=== PATIENT | male | born 1980 | race Hispanic/Latino ===

== ENCOUNTER 2017-08-23 22:23 | Inpatient (IN) | payer OTHER ==
[~2017-08-23] VITALS: Ht 162.6 cm; Wt 85.3 kg
[2017-08-23] MEDS ORDERED: [UNRECOGNIZED DRUG - OTHER] (23:08)
[2017-08-24 00:48] LABS: BILIRUBIN,URINE NEGATIVE (NEGATIVE); KETONES,URINE NEGATIVE (NEGATIVE); LEUKOCYTE ESTERASE ,URINE NEGATIVE (NEGATIVE); NITRITE,URINE NEGATIVE (NEGATIVE); PH,URINE 6 (5-9); PROTEIN,URINE 1+ (NEGATIVE); UROBILINOGEN,URINE 1 MG/DL (NORMAL)
[2017-08-24] MEDS ORDERED: fentaNYL INJECTION 100 MCG/2 ML AMP IVP STA ×2 (00:57→03:30)
[2017-08-24] MEDS ORDERED: NS IV 1000 ML 1,000 ML IV ONE (00:57)
[2017-08-24 01:13] LABS: BASOPHILS % (AUTO) 0 % (0-10); EOSINOPHILS # (AUTO) 0.5 10^3/uL (0.0-0.3); EOSINOPHILS % (AUTO) 3 % (0-10); LYMPHOCYTES # (AUTO) 2.7 X 10^3 (1.0-4.0); LYMPHOCYTES % (AUTO) 21 % (12-44); MEAN CORPUSCULAR HEMOGLOBIN 31 PG (25-34); MEAN CORPUSCULAR HGB CONC 36 G/DL (32-36); MEAN CORPUSCULAR VOLUME 88 FL (80-99); MEAN PLATELET VOLUME 10.9 FL (7.4-10.4); MONOCYTES # (AUTO) 1.1 X 10^3 (0.0-1.0); MONOCYTES % (AUTO) 8 % (0-12); NEUTROPHILS # (AUTO) 8.9 X 10^3 (1.8-7.8); NEUTROPHILS % (AUTO) 68 % (42-75); PLATELET COUNT 229 10^3/uL (130-400); RED BLOOD COUNT 5.11 10^6/uL (4.35-5.85); RED CELL DISTRIBUTION WIDTH 13.1 % (10.0-14.5); WHITE BLOOD COUNT 13.1 10^3/uL (4.3-11.0)
[2017-08-24 01:24] LABS: ALANINE AMINOTRANSFERASE 119 U/L (0-55); ALBUMIN 4.5 GM/DL (3.2-4.5); ANION GAP 12 MMOL/L (5-14); ASPARTATE AMINO TRANSFERASE 59 U/L (5-34); BILIRUBIN,TOTAL 2.6 MG/DL (0.1-1.0); BLOOD UREA NITROGEN 12 MG/DL (7-18); BUN/CREATININE RATIO 18; CALCIUM 9.4 MG/DL (8.5-10.1); CARBON DIOXIDE 24 MMOL/L (21-32); CHLORIDE 103 MMOL/L (98-107); CREATININE SERUM 0.66 MG/DL (0.60-1.30); GFR ESTIMATED > 60; GLUCOSE 95 MG/DL (70-105); POTASSIUM 3.3 MMOL/L (3.6-5.0); SODIUM 139 MMOL/L (135-145); TOTAL PROTEIN 7.9 GM/DL (6.4-8.2)
--- NOTE | 2017-08-24 01:40 | ED Abdominal Pain ---
General Chief Complaint: Abdominal/GI Problems Stated Complaint: ABD PAIN Nursing Triage Note: PT TO ED 9 W/ FAMILY, BOTH NON [place]ORE[place] SPEAKING, C/O STOMACH PAIN, COUGH, FEVER ET CHILLS ONSET YESTERDAY. PT REPORTS HE TOOK OTC MED FOR CONGESTION BUT DENIES IMPROVEMENT. Sepsis Screen: No Definite Risk Source of Information: Patient Exam Limitations: Language Barrier History of Present Illness Time Seen By Provider: 00:50 Initial Comments Here with report of left lower quadrant abdominal pain that has been going on since yesterday. Complains of stomach pain as well as fever and chills. Pain is nonradiating. Does have history of diverticular disease with rupture and had surgery for that earlier this year. Patient's medical record for this visit is not matched with previous medical record due to name identification problems on arrival. Patient has known history of the diverticular disease and surgery here. Denies vomiting or diarrhea. Denies chest pain. Information via spanish language lecturer line. Timing/Duration: 1-2 Days Severity/Quality: Moderate, Severe, Aching Location: LLQ Radiation: No Radiation Activities at Onset: None Modifying Factors: Worsens With Movement Associated Symptoms: No Back Pain, Fever/Chills, No Heartburn, No Shortness of Air, No Weakness Allergies and Home Medications Allergies Coded Allergies: No Known Drug Allergies (Unverified , 08/23/17) Home Medications [[place]] , (Reported) Review of Systems Constitutional: see HPI EENTM: No Symptoms Reported Respiratory: No Symptoms Reported, Cough, Denies SOA at Rest Cardiovascular: No Symptoms Reported, Denies Chest Pain Gastrointestinal: See HPI, Abdominal Pain, Denies Diarrhea, Denies Nausea, Denies Vomiting Genitourinary: No Symptoms Reported Musculoskeletal: no symptoms reported Skin: no symptoms reported Psychiatric/Neurological: No Symptoms Reported All Other Systems Reviewed Negative Unless Noted: Yes Past Uxulnjg-Pjpoqb-Euyplu Hx Patient Social History Alcohol Use: Denies Use Recreational Drug Use: No Smoking Status: Never a Smoker Recent Foreign Travel: No Contact w/Someone Who Travel: No Recent Infectious Disease Expo: No Recent Hopitalizations: No Physical Abuse: No Sexual Abuse: No Mistreated: No Fear: No Surgeries History of Surgeries: Yes Surgeries: Abdominal Respiratory History of Respiratory Disorde: No Cardiovascular History of Cardiac Disorders: No Neurological History of Neurological Disord: No Genitourinary History of Genitourinary Disor: No Gastrointestinal History of Gastrointestinal Di: No Musculoskeletal History of Musculoskeletal Dis: No Endocrine History of Endocrine Disorders: No HEENT History of HEENT Disorders: No Cancer History of Cancer: No Psychosocial History of Psychiatric Problem: No Suicide Risk Score: 0 Blood Transfusions History of Blood Disorders: No Reviewed Nursing Assessment Reviewed/Agree w Nursing PMH: Yes Family Medical History Significant Family History: No Pertinent Family Hx Physical Exam Vital Signs VS - Last 72 Hours, by Label 08/23/17 22:52 Temp 100.1 Pulse 81 Resp 20 B/P (MAP) 128/80 Pulse Ox 97 O2 Delivery Room Air Capillary Refill : Less Than 3 Seconds General Appearance: WD/WN, mild distress (abdominal pain) HEENT: PERRL/EOMI, pharynx normal Neck: full range of motion, supple Respiratory: lungs clear, normal breath sounds Cardiovascular: regular rate, rhythm, no murmur Gastrointestinal: soft, No guarding, No rebound, tenderness (left lower quadrant) Extremities: non-tender, normal inspection Back: normal inspection, no CVA tenderness, no vertebral tenderness Neurologic/Psychiatric: alert, oriented x 3 Skin: normal color, warm/dry Progress/Results/Core Measures Results/Orders Lab Results Laboratory Tests Test 08/23/17 23:17 08/24/17 01:00 Range/Units Urine Color YELLOW Urine Clarity CLEAR Urine pH 6 5-9 Urine Specific [place] 1.020 1.016-1.022 Urine Protein 1+ H NEGATIVE Urine Glucose (UA) NEGATIVE NEGATIVE Urine Ketones NEGATIVE NEGATIVE Urine Nitrite NEGATIVE NEGATIVE Urine Bilirubin NEGATIVE NEGATIVE Urine Urobilinogen 1 NORMAL MG/DL Urine Leukocyte Esterase NEGATIVE NEGATIVE Urine RBC (Auto) NEGATIVE NEGATIVE Urine RBC NONE /HPF Urine WBC NONE /HPF Urine Crystals NONE /LPF Urine Bacteria NEGATIVE /HPF Urine Casts NONE /LPF Urine Mucus NEGATIVE /LPF Urine Culture Indicated NO White Blood Count 13.1 H 4.3-11.0 10^3/uL Red Blood Count 5.11 4.35-5.85 10^6/uL Hemoglobin 15.9 13.3-17.7 G/DL Hematocrit 45 40-54 % Mean Corpuscular Volume 88 80-99 FL Mean Corpuscular Hemoglobin 31 25-34 PG Mean Corpuscular Hemoglobin Concent 36 32-36 G/DL Red Cell Distribution Width 13.1 10.0-14.5 % Platelet Count 229 130-400 10^3/uL Mean Platelet Volume 10.9 H 7.4-10.4 FL Neutrophils (%) (Auto) 68 42-75 % Lymphocytes (%) (Auto) 21 12-44 % Monocytes (%) (Auto) 8 0-12 % Eosinophils (%) (Auto) 3 0-10 % Basophils (%) (Auto) 0 0-10 % Neutrophils # (Auto) 8.9 H 1.8-7.8 X 10^3 Lymphocytes # (Auto) 2.7 1.0-4.0 X 10^3 Monocytes # (Auto) 1.1 H 0.0-1.0 X 10^3 Eosinophils # (Auto) 0.5 H 0.0-0.3 10^3/uL Basophils # (Auto) 0.0 0.0-0.1 10^3/uL Sodium Level 139 135-145 MMOL/L Potassium Level 3.3 L 3.6-5.0 MMOL/L Chloride Level 103 98-107 MMOL/L Carbon Dioxide Level 24 21-32 MMOL/L Anion Gap 12 5-14 MMOL/L Blood Urea Nitrogen 12 7-18 MG/DL Creatinine 0.66 0.60-1.30 MG/DL Estimat Glomerular Filtration Rate > 60 BUN/Creatinine Ratio 18 Glucose Level 95 70-105 MG/DL Calcium Level 9.4 8.5-10.1 MG/DL Total Bilirubin 2.6 H 0.1-1.0 MG/DL Aspartate Amino Transf (AST/SGOT) 59 H 5-34 U/L Alanine Aminotransferase (ALT/SGPT) 119 H 0-55 U/L Alkaline Phosphatase 106 40-136 U/L Total Protein 7.9 6.4-8.2 GM/DL Albumin 4.5 3.2-4.5 GM/DL Micro Results Microbiology 08/23/17 Influenza Types A,B Antigen (ARBEN) - Final, Complete My Orders Orders - SARAH FERRO MD Cbc With Automated Diff (08/24/17 00:57) Comprehensive Metabolic Panel (08/24/17 00:57) Saline Lock/Iv-Start (08/24/17 00:57) Ns Iv 1000 Ml (Sodium Chloride 0.9%) (08/24/17 00:57) Fentanyl Injection (Sublimaze Injection (08/24/17 00:57) Ct Abdomen/Pelvis W (08/24/17 01:26) Iohexol Injection (Omnipaque 350 Mg/Ml 1 (08/24/17 02:00) Ns (Ivpb) (Sodium Chloride 0.9% Ivpb Bag (08/24/17 02:00) Fentanyl Injection (Sublimaze Injection (08/24/17 03:30) Ceftriaxone Injection (Rocephin Injectio (08/24/17 03:45) Medications Given in ED Current Medications Medications Dose Ordered Sig/Quyen Route Start Time Stop Time Status Last Admin Dose Admin Iohexol 100 ml ONCE ONCE IV 08/24/17 02:00 08/24/17 02:01 DC 08/24/17 01:57 100 ML Sodium Chloride 100 ml ONCE ONCE IV 08/24/17 02:00 08/24/17 02:01 DC 08/24/17 01:58 80 ML Sodium Chloride 1,000 ml @ 0 mls/hr Q0M ONCE IV 08/24/17 00:57 08/24/17 00:58 DC 08/24/17 01:14 1,000 MLS/HR Vital Signs/I&O Vital Sign - Last 12Hours 08/23/17 22:52 Temp 100.1 Pulse 81 Resp 20 B/P (MAP) 128/80 Pulse Ox 97 O2 Delivery Room Air Blood Pressure Mean: 96 Progress Note : Progress Note Seen and evaluated. IV, labs, UA, normal saline 1 L bolus and fentanyl 75 micrograms IV ordered. Monitor patient. CT abdomen pelvis ordered. This was complete. Patient still with pain. 0325: Case discussed with Dr. Solano, surgeon on-call. He has history with the patient. He will admit the patient for further evaluation and care including IV antibiotic and pain control. Admit , inpatient status. Patient agrees with plan. Rocephin 1 g IV ordered. Repeat fentanyl 75 mcg IV ordered. Diagnostic Imaging Diagonstic Imaging: CT Plain Films/CT/US/NM/MRI: abdomen, pelvis Comments Postoperative changes of distal descending colon sig mental resection and reanastomosis since prior CT. Acute diverticulitis involving the distal descending colon just above the surgical anastomosis. No evidence of gross perforation or abscess formation. Fact containing umbilical hernia. Hepatic steatosis. Departure Communication (Admissions) Time/Spoke to Admitting Phy: 03:25 Impression Impression: Primary Impression: Diverticulitis of intestine Qualified Codes: K57.32 - Diverticulitis of large intestine without perforation or abscess without bleeding Disposition: 09 ADMITTED INPATIENT Condition: Stable Admissions Decision to Admit Reason: Admit from ER (General) Decision to Admit/Date: Aug 24, 2017 Time/Decision to Admit Time: 03:25 Departure-Patient Inst. Referrals: [facility] (PCP/Family) Primary Care Physician SARAH FERRO MD Aug 24, 2017 01:40
[2017-08-24] MEDS ORDERED: NS 100 ML (IVPB) BAG IV ONE (02:00)
[2017-08-24] MEDS ORDERED: IOHEXOL 350 MG/ML 100 ML (OMNIPAQUE 350) VIAL IV ONE (02:00)
[2017-08-24] MEDS ORDERED: cefTRIAXone INJECTION 1,000 MG in NS (IVPB) 50 ML IV ONE (03:45)
[2017-08-24 05:30] VITALS: BP 117/58
[2017-08-24] MEDS ORDERED: NS IV 1000 ML 1,000 ML ONE (05:35)
--- OUTSIDE RECORDS SUMMARY | 2017-08-24 05:38 | XMS REPORT | Continuity of Care Document ---
Author Author [facility] Organization [facility] Address Unknown Phone Unavailable Care Team Providers Care Block Sawyer Name Role Phone NO, LOCAL PHYSICIAN PCP Unavailable Insurance Providers Payer Name Policy Number Subscriber Name Relationship Unknown Betty Suero 20 Self / Same As Patient Advance Directives Directive Response Recorded Date/Time Advance Directives No 06/12/15 7:17pm Resuscitation Status Full Code 06/12/15 7:17pm Chief Complaint and Reason for Visit Chief Complaint Abdominal/GI Problems Reason for Visit [id number] Gastritis Epigastric pain Problems Active Problems Medical Problem Onset Date Status Abnormal liver function test Unknown Acute Epigastric pain Unknown Acute Gastritis Unknown Acute Medications Current Home Medications Medication Dose Units Route Directions Days/Qty Instructions Start Date Famotidine 20 Mg 20 Mg Oral Twice A Day 30 06/12/15 Sucralfate 1 Gm/10 Ml 1 Gm Oral Four Times Daily 1 06/12/15 Past Home Medications Medication Directions Ordered Status Cephalexin Monohydrate (Keflex) 500 Mg Capsule, 1 Each Oral Four Times Daily 02/02/12 Discontinued Social History Social History Problem Response Recorded Date/Time Alcohol Use Denies Use 06/12/2015 7:17pm Recreational Drug Use No 06/12/2015 7:17pm Recent Foreign Travel No 06/12/2015 7:17pm Recent Infectious Disease Exposure No 06/12/2015 7:17pm Hospitalization with Isolation Denies 06/12/2015 7:17pm Smoking Status Never a Smoker 06/12/2015 7:17pm Do you dip or chew tobacco? No 06/12/2015 7:17pm Query Response Start Date Stop Date Smoking Status Never a Smoker Hospital Discharge Instructions No hospital discharge instructions. Plan of Care Discharge Date 06/12/15 9:11pm Disposition 01 HOME, SELF-CARE Condition at Discharge Improved Instructions/Education Provided Gastritis (ED) Diet for Ulcers and Gastritis (GEN) Acute Abdominal Pain (ED) Forms Provided Local Medical Staff Listing Prescriptions See Medication Section Referrals NO,LOCAL PHYSICIAN - Primary Care Physician Additional Instructions/Education All discharge instructions reviewed with patient and/or family. Voiced understanding. Medications as directed. Drink plenty of fluids. No spicy foods, fatty foods, carbonated beverages, caffeinated beverages, alcohol, smoking, secondhand smoke, ibuprofen/Motrin, aspirin, Aleve. Do not eat within 2 hours of lying down. Follow-up with your family practitioner for a recheck and repeat labs in the next 5-7 days, call Saturday morning for appointment time. Return to the emergency department for worsened pain, fever, vomiting, vomiting blood, rectal bleeding, black stools, diarrhea, or any other concerns. Functional Status No functional status results. Allergies, Adverse Reactions, Alerts No known allergies. Immunizations No immunization records. Vital Signs Acute Vital Signs Vital Response Date/Time Temperature (Fahrenheit) 98.0 degrees F (97.6 - 99.5) 06/12/2015 7:17pm Temperature (Calculated Celsius) 36.04195 degrees C (36.4 - 37.5) 06/12/2015 7:17pm Temperature Source Temporal 06/12/2015 7:17pm Pulse Rate (adult) 68 bpm (60 - 90) 06/12/2015 7:17pm Respiratory Rate 16 bpm (12 - 24) 06/12/2015 7:17pm O2 Sat by Pulse Oximetry 99 % (88 - 100) 06/12/2015 7:17pm Blood Pressure 133/90 mm Hg 06/12/2015 7:17pm Blood Pressure Mean 104 mm Hg 06/12/2015 7:17pm Pain Pain Intensity 7 06/12/2015 7:17pm Height (Feet) 5 feet 06/12/2015 7:17pm Height (Inches) 4 inches 06/12/2015 7:17pm Height (Calculated Centimeters) 162.576836 cm 06/12/2015 7:17pm Weight (Pounds) 170 pounds 06/12/2015 7:17pm Weight (Calculated Kilograms) 77.317461 kilograms 06/12/2015 7:17pm Calculated BMI 29.18 06/12/2015 7:17pm Results Laboratory Results Test Name Result Units Flags Reference Collection Date/Time Result Date/ Time Comments White Blood Count 7.3 10^3/uL 4.3-11.0 06/12/2015 8:18pm 06/12/2015 8: 28pm Red Blood Count 5.43 10^6/uL 4.35-5.85 06/12/2015 8:18pm 06/12/2015 8: 28pm Hemoglobin 16.8 G/DL 13.3-17.7 06/12/2015 8:18pm 06/12/2015 8:28pm Hematocrit 48 % 40-54 06/12/2015 8:06/12/2015 8:28pm Mean Corpuscular Volume 88 FL 80-99 06/12/2015 8:pm 06/12/2015 8: 28pm Mean Corpuscular Hemoglobin 31 PG 25-34 06/12/2015 8:06/12/2015 8: 28pm Mean Corpuscular Hemoglobin Concent 35 G/DL 32-36 06/12/2015 8:18pm 8:28pm Red Cell Distribution Width 12.9 % 10.0-14.5 06/12/2015 8:2014 8:28pm Platelet Count 259 10^3/uL 130-400 06/12/2015 8:06/12/2015 8:28pm Mean Platelet Volume 10.7 FL H 7.4-10.4 06/12/2015 8:06/12/2015 8: 28pm Neutrophils (%) (Auto) 57 % 42-75 06/12/2015 8:pm 06/12/2015 8:28pm Lymphocytes (%) (Auto) 23 % 12-44 06/12/2015 8:pm 06/12/2015 8:28pm Monocytes (%) (Auto) 9 % 0-12 06/12/2015 8:18pm 06/12/2015 8:28pm Eosinophils (%) (Auto) 10 % 0-10 06/12/2015 8:06/12/2015 8:28pm Basophils (%) (Auto) 1 % 0-10 06/12/2015 8:18pm 06/12/2015 8:28pm Neutrophils # (Auto) 4.2 X 10^3 1.8-7.8 06/12/2015 8:18pm 06/12/2015 8: 28pm Lymphocytes # (Auto) 1.7 X 10^3 1.0-4.0 06/12/2015 8:18pm 06/12/2015 8: 28pm Monocytes # (Auto) 0.7 X 10^3 0.0-1.0 06/12/2015 8:18pm 06/12/2015 8: 28pm Eosinophils # (Auto) 0.8 10^3/uL H 0.0-0.3 06/12/2015 8:18pm 06/12/2015 8 :28pm Basophils # (Auto) 0.1 10^3/uL 0.0-0.1 06/12/2015 8:18pm 06/12/2015 8: 28pm Sodium Level 139 MMOL/L 135-145 06/12/2015 8:pm 06/12/2015 8:51pm Potassium Level 3.5 MMOL/L L 3.6-5.0 06/12/2015 8:18pm 06/12/2015 8:51pm Chloride Level 103 MMOL/L 98-107 06/12/2015 8:pm 06/12/2015 8:51pm Carbon Dioxide Level 22 MMOL/L 21-32 06/12/2015 8:pm 06/12/2015 8: 51pm Anion Gap 14 MMOL/L 5-14 06/12/2015 8:06/12/2015 8:51pm Blood Urea Nitrogen 15 MG/DL 7-06/12/2015 8:06/12/2015 8:51pm Creatinine 0.71 MG/DL 0.60-1.30 06/12/2015 8:pm 06/12/2015 8:51pm BUN/Creatinine Ratio 21 06/12/2015 8:06/12/2015 8:51pm Estimat Glomerular Filtration Rate > 60 06/12/2015 8:2014 8:51pm GFR INTERPRETIVE DATA UNITS FOR ESTIMATED GFR (eGFR): mL/min/1.73 M2 REFERENCE RANGE FOR ESTIMATED GFR (eGFR) eGFR NORMAL eGFR >60 MODERATELY DECREASED eGFR 30-59 SEVERLY DECREASED eGFR 15-29 KIDNEY FAILURE <15 (OR DIALYSIS) Glucose Level 109 MG/DL H 70-105 06/12/2015 8:18pm 06/12/2015 8:51pm Calcium Level 8.9 MG/DL 8.5-10.1 06/12/2015 8:18pm 06/12/2015 8:51pm Total Bilirubin 0.7 MG/DL 0.1-1.0 06/12/2015 8:18pm 06/12/2015 8:51pm Alkaline Phosphatase 106 U/L 40-136 06/12/2015 8:18pm 06/12/2015 8: 51pm Aspartate Amino Transf (AST/SGOT) 62 U/L H 5-34 06/12/2015 8:18pm 2014 8:51pm Alanine Aminotransferase (ALT/SGPT) 100 U/L H 0-55 06/12/2015 8:18pm 8:51pm Total Protein 7.6 G/DL 6.4-8.2 06/12/2015 8:18pm 06/12/2015 8:51pm Albumin 4.3 G/DL 3.2-4.5 06/12/2015 8:18pm 06/12/2015 8:51pm Lipase 38 U/L 8-78 06/12/2015 8:18pm 06/12/2015 8:51pm Procedures No known history of procedures. Encounters Encounter Location Arrival/Admit Date Discharge/Depart Date Attending Provider Departed Emergency Room [facility] 06/12/15 6:39pm 06/12 9:11pm JOSIE CASTRO Recent Diagnosis
--- OUTSIDE RECORDS SUMMARY | 2017-08-24 05:39 | XMS REPORT | Continuity of Care Document ---
Author Author [facility] Organization [facility] Address Unknown Phone Unavailable Care Team Providers Care Welfare Worker Name Role Phone NO, LOCAL PHYSICIAN PCP Unavailable Insurance Providers Payer Name Policy Number Subscriber Name Relationship Unknown Advance Directives Directive Response Recorded Date/Time Advance Directives No 10/07/16 9:44am Resuscitation Status Full Code 10/07/16 9:44am Chief Complaint and Reason for Visit Chief Complaint Abdominal/GI Problems Reason for Visit Diverticulitis of intestine Problems Active Problems Medical Problem Onset Date Status Abnormal liver function test Unknown Acute Diverticulitis of intestine Unknown Acute Epigastric pain Unknown Acute Gastritis [...] History Problem Response Recorded Date/Time Alcohol Use Regular Use 06/24/2015 3:44pm Recreational Drug Use No 06/12/2015 7:17pm Recent Foreign Travel No 10/07/2016 9:44am Recent Infectious Disease Exposure No 10/07/2016 9:44am Hospitalization with Isolation Denies 10/07/2016 9:44am Smoking Status Never a Smoker 10/07/2016 9:44am Do you dip or chew tobacco? No 06/12/2015 7:17pm Recent Hopitalizations No 10/07/2016 9:44am Hospitalization with Isolation Denies 10/07/2016 9:44am Query Response Start Date Stop Date Smoking Status Never a Smoker Hospital Discharge Instructions No hospital discharge instructions. Plan of Care Discharge Date 10/07/16 11:18am Disposition 01 HOME, SELF-CARE Condition at Discharge Improved Instructions/Education Provided Diverticulitis (DC) Prescriptions See Medication Section Referrals [facility],LOCAL PHYSICIAN - Primary Care Physician Additional Instructions/Education Zofran, Vicodin, Cipro, and Flagyl as prescribed. Close follow-up with [facility] tomorrow. Return if any problems or questions. All discharge instructions reviewed with patient and/or family. Voiced understanding. Functional Status No functional status results. Allergies, Adverse Reactions, Alerts No known allergies. Immunizations No immunization records. Vital Signs Acute Vital Signs Vital Response Date/Time Temperature (Fahrenheit) 98.0 degrees F (97.6 - 99.5) 10/07/2016 9:44am Temperature (Calculated Celsius) 36.62540 degrees C (36.4 - 37.5) 10/07/2016 9:44am Temperature Source Temporal 10/07/2016 9:44am Pulse Rate (adult) 88 bpm (60 - 90) 10/07/2016 9:44am Respiratory Rate 20 bpm (12 - 24) 10/07/2016 9:44am O2 Sat by Pulse Oximetry 97 % (88 - 100) 10/07/2016 9:44am Blood Pressure 128/85 mm Hg 10/07/2016 9:44am Blood Pressure Mean 99 mm Hg 10/07/2016 9:44am Pain Numeric Pain Scale 8 10/07/2016 10:25am Height (Feet) 5 feet 10/07/2016 9:44am Height (Inches) 5 inches 10/07/2016 9:44am Height (Calculated Centimeters) 165.361857 cm 10/07/2016 9:44am Weight (Pounds) 170 pounds 10/07/2016 9:44am Weight (Calculated Grams) 72010.704 gm 10/07/2016 9:44am Weight (Calculated Kilograms) 77.790868 kilograms 10/07/2016 9:44am Calculated BMI 29.18 10/07/2016 9:44am Capillary Refill Capillary Refill Less Than 3 Seconds 10/07/2016 9:44am Results Laboratory Results Test Name Result Units Flags Reference Collection Date/Time Result Date/ Time Comments White Blood Count 13.6 10^3/uL H 4.3-11.0 10/07/2016 10:15am 10/07/2016 10:23am Red Blood Count 5.49 10^6/uL 4.35-5.85 10/07/2016 10:15am 10/07/2016 10 :23am Hemoglobin 17.2 G/DL 13.3-17.7 10/07/2016 10:15am 10/07/2016 10:23am Hematocrit 48 % 40-54 10/07/2016 10:1510/07/2016 10:23am Mean Corpuscular Volume 88 FL 80-99 10/07/2016 10:am 10/07/2016 10: 23am Mean Corpuscular Hemoglobin 31 PG 25-34 10/07/2016 10:15am 10/07/2016 10:23am Mean Corpuscular Hemoglobin Concent 36 G/DL 32-36 10/07/2016 10: 10:23am Red Cell Distribution Width 13.0 % 10.0-14.5 10/07/2016 10:15am 2016 10:23am Platelet Count 244 10^3/uL 130-400 10/07/2016 10:am 10/07/2016 10: 23am Mean Platelet Volume 10.6 FL H 7.4-10.4 10/07/2016 10:15am 10/07/2016 10: 23am Neutrophils (%) (Auto) 74 % 42-75 10/07/2016 10:10/07/2016 10: 23am Lymphocytes (%) (Auto) 12 % 12-44 10/07/2016 10:1510/07/2016 10: 23am Monocytes (%) (Auto) 8 % 0-12 10/07/2016 10:15am 10/07/2016 10:23am Eosinophils (%) (Auto) 5 % 0-10 10/07/2016 10:15am 10/07/2016 10:23am Basophils (%) (Auto) 0 % 0-10 10/07/2016 10:15am 10/07/2016 10:23am Neutrophils # (Auto) 10.1 X 10^3 H 1.8-7.8 10/07/2016 10:15am 10/07/2016 10:23am Lymphocytes # (Auto) 1.6 X 10^3 1.0-4.0 10/07/2016 10:15am 10/07/2016 10:23am Monocytes # (Auto) 1.1 X 10^3 H 0.0-1.0 10/07/2016 10:15am 10/07/2016 10: 23am Eosinophils # (Auto) 0.7 10^3/uL H 0.0-0.3 10/07/2016 10:15am 10/07/2016 10:23am Basophils # (Auto) 0.0 10^3/uL 0.0-0.1 10/07/2016 10:15am 10/07/2016 10 :23am Sodium Level 137 MMOL/L 135-145 10/07/2016 10:15am 10/07/2016 10:44am Potassium Level 3.8 MMOL/L 3.6-5.0 10/07/2016 10:15am 10/07/2016 10: 44am Chloride Level 103 MMOL/L 98-107 10/07/2016 10:15am 10/07/2016 10:44am Carbon Dioxide Level 25 MMOL/L 21-32 10/07/2016 10:15am 10/07/2016 10: 44am Anion Gap 9 MMOL/L 5-14 10/07/2016 10:15am 10/07/2016 10:44am Blood Urea Nitrogen 20 MG/DL H 7-18 10/07/2016 10:15am 10/07/2016 10: 44am Creatinine 0.75 MG/DL 0.60-1.30 10/07/2016 10:15am 10/07/2016 10:44am BUN/Creatinine Ratio 27 10/07/2016 10:15am 10/07/2016 10:44am Estimat Glomerular Filtration Rate > 60 10/07/2016 10:15am 2016 10:44am GFR INTERPRETIVE DATA UNITS FOR ESTIMATED GFR (eGFR): mL/min/1.73 M2 REFERENCE RANGE FOR ESTIMATED GFR (eGFR) eGFR NORMAL eGFR >60 MODERATELY DECREASED eGFR 30-59 SEVERLY DECREASED eGFR 15-29 KIDNEY FAILURE <15 (OR DIALYSIS) Glucose Level 108 MG/DL H 70-105 10/07/2016 10:15am 10/07/2016 10:44am Calcium Level 9.2 MG/DL 8.5-10.1 10/07/2016 10:15am 10/07/2016 10:44am Total Bilirubin 1.7 MG/DL H 0.1-1.0 10/07/2016 10:15am 10/07/2016 10: 44am Alkaline Phosphatase 99 U/L 40-136 10/07/2016 10:15am 10/07/2016 10: 44am Aspartate Amino Transf (AST/SGOT) 30 U/L 5-34 10/07/2016 10:15am 2016 10:44am Alanine Aminotransferase (ALT/SGPT) 74 U/L H 0-55 10/07/2016 10:15am 04/2017 10:44am Total Protein 7.5 G/DL 6.4-8.2 10/07/2016 10:15am 10/07/2016 10:44am Albumin 4.7 G/DL H 3.2-4.5 10/07/2016 10:15am 10/07/2016 10:44am Lipase 26 U/L 8-78 10/07/2016 10:15am 10/07/2016 10:44am Procedures No known history of procedures. Encounters Encounter Location Arrival/Admit Date Discharge/Depart Date Attending Provider Departed Emergency Room [facility] 10/07/16 9:12am 10/07 11:18am JULAI PEDRAZA MD Recent Diagnosis
[2017-08-24] MEDS ORDERED: ONDANSETRON 4 MG/2 ML (SDV) Z0FRAN IV PRN (06:15)
[2017-08-24] MEDS ORDERED: CATHETER FLUSH 10 ML SYR IV PRN (06:15)
[2017-08-24] MEDS: NS IV 1000 ML 1,000 ML IV SCH ×2 (06:36→15:48)
[2017-08-24] MEDS: metroNIDAZOLE 500 MG/100 ML IVPB (PRE-MIX) IV SCH ×3 (06:39→21:18)
[2017-08-24 08:00] VITALS: BP 102/50
--- NOTE | 2017-08-24 08:38 | History & Physical-Surgical ---
History of Present Illness History of Present Illness Reason for visit/HPI Pt is known to me; he initially presented in December with similar symptoms to now and was diagnosed at the time with Chronic Diverticulitis. He continued to have pain that was affecting his quality of life and decided to have elective colon resection in February. He presented early this morning with report of left lower quadrant abdominal pain that has been going on since yesterday. Complains of stomach pain as well as fever and chills. Pain is nonradiating. Patient's medical record for this visit is not matched with previous medical record due to name identification problems on arrival. Patient has known history of the diverticular disease and surgery here. Denies vomiting or diarrhea. Denies chest pain. Information via hourly sign language interpreter line. He points more to left flank and axillary line then LLQ. He states he has basically been fine since surgery; no other episodes of pain like this. Timing/Duration: 1-2 Days Severity/Quality: Moderate, Severe, Aching Location: LLQ Radiation: No Radiation Activities at Onset: None Modifying Factors: Worsens With Movement Associated Symptoms: No Back Pain, Fever/Chills, No Heartburn, No Shortness of Air, No Weakness Date of Admission Aug 24, 2017 at 03:35 Time Seen by Provider: 02:47 I consulted on this patient on 08/24/17 08:33 Attending Physician Parvez Solano DO Admitting Physician Nathan,[facility] Allergies and Home Medications Allergies Coded Allergies: No Known Drug Allergies (Unverified , 08/23/17) Home Medications [[place]] , (Reported) Past [id number] Hx Patient Social History Alcohol Use: Denies Use Recreational Drug Use: No Smoking Status: Never a Smoker Recent Foreign Travel: No Contact w/Someone Who Travel: No Recent Infectious Disease Expo: No Recent Hopitalizations: No Physical Abuse Screen: No Sexual Abuse: No Seasonal Allergies Seasonal Allergies: No Surgeries History of Surgeries: Yes (COLON RESECTION) Surgeries: Abdominal Respiratory History of Respiratory Disorde: No Cardiovascular History of Cardiac Disorders: No Neurological History of Neurological Disord: No Genitourinary History of Genitourinary Disor: No Gastrointestinal History of Gastrointestinal Di: Yes Gastrointestinal Disorders: Diverticulosis Musculoskeletal History of Musculoskeletal Dis: No Endocrine History of Endocrine Disorders: No HEENT History of HEENT Disorders: No Cancer History of Cancer: No Psychosocial History of Psychiatric Problem: No Integumentary History of Skin or Integumenta: No Blood Transfusions History of Blood Disorders: No Reviewed Nursing Assessment Reviewed/Agree w Nursing PMH: Yes Family Medical History Significant Family History: Diabetes (Pt states his mother and father do not have DM) Constitutional: chills, diaphoresis, weakness EENTM: No double vision, No dental problems, No mouth swelling, No epistaxis, No throat swelling Respiratory: No cough, No dyspnea on exertion, No hemoptysis Cardiovascular: No chest pain, No edema, No Hx of Intervention Gastrointestinal: LLQ, No jaundice, No nausea, No vomiting Genitourinary: No dysuria, No frequency, No hematuria Musculoskeletal: No back pain, No gout, No joint pain Skin: No change in color, No change in hair/nails, No dryness Psychiatric/Neurological: Denies Anxiety, Denies Depressed, Denies Tingling, Denies Tremors Other Pt denies any abnormal bleeding or bruising Physical Exam Vital Signs Vital Sign - Last 12Hours 08/23/17 22:52 Temp 100.1 Pulse 81 Resp 20 B/P (MAP) 128/80 Pulse Ox 97 O2 Delivery Room Air Capillary Refill : Less Than 3 Seconds General Appearance: WD/WN, Mild Distress Eyes: Bilateral Eye PERRL, Bilateral Eye EOMI HEENT: Pharynx Normal, Moist Mucous Membranes, No Pale Conjunctivae (L), No Pale Conjunctivae (R) Neck: Full Range of Motion, Normal Inspection, Non Tender, Supple Respiratory: Chest Non Tender, Lungs Clear, Normal Breath Sounds, No Accessory Muscle Use, No Respiratory Distress Cardiovascular: Regular Rate, Rhythm, No Edema, No Murmur Gastrointestinal: No Organomegaly, Soft, Hernia (umbilical and ventral), Tenderness (mild in LLQ and Left flank) Rectal: Deferred Extremity: Normal Capillary Refill, Normal Inspection, Normal Range of Motion, Non Tender, No Calf Tenderness, No Pedal Edema Neurologic/Psychiatric: Alert, Oriented x3, No Motor/Sensory Deficits, Normal 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/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, 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 Norm as Tested Skin: Normal Color, Warm/Dry Lymphatic: No Adenopathy (neck, axilla or groin) Data Review Labs Laboratory Tests 08/23/17 23:17: Urine Color YELLOW, Urine Clarity CLEAR, Urine pH 6, Urine Specific [place] 1.020, Urine Protein 1+H, Urine Glucose (UA) NEGATIVE, Urine Ketones NEGATIVE, Urine Nitrite NEGATIVE, Urine Bilirubin NEGATIVE, Urine Urobilinogen 1, Urine Leukocyte Esterase NEGATIVE, Urine RBC (Auto) NEGATIVE, Urine RBC NONE, Urine WBC NONE, Urine Crystals NONE, Urine Bacteria NEGATIVE, Urine Casts NONE, Urine Mucus NEGATIVE, Urine Culture Indicated NO 08/24/17 01:00: White Blood Count 13.1H, Red Blood Count 5.11, Hemoglobin 15.9, Hematocrit 45, Mean Corpuscular Volume 88, Mean Corpuscular Hemoglobin 31, Mean Corpuscular Hemoglobin Concent 36, Red Cell Distribution Width 13.1, Platelet Count 229, Mean Platelet Volume 10.9H, Neutrophils (%) (Auto) 68, Lymphocytes (%) (Auto) 21 , Monocytes (%) (Auto) 8, Eosinophils (%) (Auto) 3, Basophils (%) (Auto) 0, Neutrophils # (Auto) 8.9H, Lymphocytes # (Auto) 2.7, Monocytes # (Auto) 1.1H, Eosinophils # (Auto) 0.5H, Basophils # (Auto) 0.0, Sodium Level 139, Potassium Level 3.3L, Chloride Level 103, Carbon Dioxide Level 24, Anion Gap 12, Blood Urea Nitrogen 12, Creatinine 0.66, Estimat Glomerular Filtration Rate > 60, BUN/ Creatinine Ratio 18, Glucose Level 95, Calcium Level 9.4, Total Bilirubin 2.6H, Aspartate Amino Transf (AST/SGOT) 59H, Alanine Aminotransferase (ALT/SGPT) 119H , Alkaline Phosphatase 106, Total Protein 7.9, Albumin 4.5 Microbiology 08/23/17 Influenza Types A,B Antigen (ARBEN) - Final, Complete Assessment/Plan Assessment/Plan Assessment/Plan Acute Diverticulitis Pt was admitted, IVF, IV ABX, pain control and will allow minimal clear liquid diet. If pt does not tolerate clears; he will need to be NPO. CT was read by the radiologist as acute diverticulitis; no free air or signs of perforation. Pt's abdomen is soft and only has localized tenderness. Will monitor pt and make sure he is improving; will then increase diet and hopefully send home. Clinical Quality Measures DVT/VTE Risk/Contraindication: Risk Factor Score Per Nursin RFS Level Per Nursing on Admit: 1=Low/No VTE PPX PARVEZ SOLANO DO Aug 24, 2017 08:38
--- NOTE | 2017-08-24 08:38 | Diagnostic Imaging Report ---
PROCEDURE: CT abdomen and pelvis with contrast. TECHNIQUE: Multiple contiguous axial images were obtained through the abdomen and pelvis after administration of intravenous contrast. INDICATION: Diverticulitis. COMPARISON: 03/13/2017. FINDINGS: Since the previous exam, there has been interval sigmoid resection. Proximal to the anastomosis, the descending colon shows some regional diverticuli, bowel wall thickening and pericolonic edema suggestive of recurrent focal diverticulitis. We acknowledge this is much less severe than what was present on the previous exam. There is no free air. There is no ascites, abscess, or other fluid collection. There is no resultant bowel obstruction. There is no appendicitis. The urinary tracts are unobstructed. The gallbladder is negative. There is mild chronic hepatic steatosis. The spleen, adrenals and pancreas are unremarkable. A airam-umbilical fatty hernia is present. No herniated viscus. IMPRESSION: 1. Interval sigmoid resection. Just above the anastomosis, there is some distal descending colonic diverticulitis without findings of resultant obstruction, transmural perforation or abscess. Inflammatory changes are relatively mild today and much less severe than what was found on the previous preoperative study. 2. Increasing prominence of fatty umbilical hernia without herniated viscus. 3. Chronic hepatic steatosis. Dictated by: Dictated on workstation # [id number]
[2017-08-24 12:00] VITALS: BP 107/55
[2017-08-24] MEDS: CATHETER FLUSH 10 ML SYR IV SCH ×2 (14:16→21:18)
[2017-08-24 15:39] VITALS: BP 101/59
[2017-08-24] MEDS: fentaNYL INJECTION 100 MCG/2 ML AMP IV PRN ×2 (15:47→18:40)
[2017-08-24 19:45] VITALS: BP 111/63
[2017-08-24 23:30] VITALS: BP 106/51
[2017-08-25] MEDS: NS IV 1000 ML 1,000 ML IV SCH ×2 (00:48→10:10)
[2017-08-25 04:20] VITALS: BP 107/59
[2017-08-25] MEDS: CATHETER FLUSH 10 ML SYR IV SCH ×2 (04:51→10:10)
[2017-08-25] MEDS ORDERED: cefTRIAXone 1 GM/NS 50 ML IVPB IV SCH ×2 (05:00)
[2017-08-25] MEDS: metroNIDAZOLE 500 MG/100 ML IVPB (PRE-MIX) IV SCH ×2 (05:40→14:21)
[2017-08-25 05:58] LABS: BASOPHILS % (AUTO) 0 % (0-10); EOSINOPHILS # (AUTO) 0.7 10^3/uL (0.0-0.3); EOSINOPHILS % (AUTO) 9 % (0-10); LYMPHOCYTES % (AUTO) 25 % (12-44); MEAN CORPUSCULAR HEMOGLOBIN 31 PG (25-34); MEAN CORPUSCULAR HGB CONC 35 G/DL (32-36); MEAN CORPUSCULAR VOLUME 90 FL (80-99); MEAN PLATELET VOLUME 11.1 FL (7.4-10.4); MONOCYTES # (AUTO) 0.8 X 10^3 (0.0-1.0); MONOCYTES % (AUTO) 9 % (0-12); NEUTROPHILS # (AUTO) 4.6 X 10^3 (1.8-7.8); NEUTROPHILS % (AUTO) 57 % (42-75); PLATELET COUNT 231 10^3/uL (130-400); RED BLOOD COUNT 4.89 10^6/uL (4.35-5.85); RED CELL DISTRIBUTION WIDTH 13.3 % (10.0-14.5); WHITE BLOOD COUNT 8.2 10^3/uL (4.3-11.0)
[2017-08-25 06:18] LABS: ALANINE AMINOTRANSFERASE 92 U/L (0-55); ALBUMIN 3.6 GM/DL (3.2-4.5); ANION GAP 9 MMOL/L (5-14); ASPARTATE AMINO TRANSFERASE 40 U/L (5-34); BILIRUBIN,TOTAL 2.1 MG/DL (0.1-1.0); BLOOD UREA NITROGEN 10 MG/DL (7-18); BUN/CREATININE RATIO 16; CALCIUM 8.6 MG/DL (8.5-10.1); CARBON DIOXIDE 25 MMOL/L (21-32); CHLORIDE 107 MMOL/L (98-107); CREATININE SERUM 0.61 MG/DL (0.60-1.30); GFR ESTIMATED > 60; GLUCOSE 98 MG/DL (70-105); POTASSIUM 3.4 MMOL/L (3.6-5.0); SODIUM 141 MMOL/L (135-145); TOTAL PROTEIN 6.5 GM/DL (6.4-8.2)
[2017-08-25 08:00] VITALS: BP 107/60
[2017-08-25] MEDS: fentaNYL INJECTION 100 MCG/2 ML AMP IV PRN (08:17)
--- NOTE | 2017-08-25 13:02 | Progress Note ---
Subjective Time Seen by Provider: 12:31 Subjective/Events-last exam Pt seen and examined, states his pain is 2 out of 10. Tolerating clears and feels much better. +flatus and had BM Review of Systems General: No Chills, No Night Sweats Pulmonary: No Dyspnea, No Cough Cardiovascular: No: Chest Pain, Palpitations Gastrointestinal: No: Nausea, Vomiting, Abdominal Pain (much improved) Genitourinary: No Dysuria, No Frequency Objective Exam Vital Signs Date Time Temp Pulse Resp B/P (MAP) Pulse Ox O2 Delivery O2 Flow Rate FiO2 08/25/17 09:00 96 Room Air 08/25/17 08:00 97.6 71 20 107/60 96 Room Air 08/25/17 04:20 98.5 62 18 107/59 98 Room Air 08/24/17 23:30 99.4 61 18 106/51 97 Room Air 08/24/17 19:45 98.9 67 18 111/63 97 Room Air 08/24/17 15:39 100.2 79 18 101/59 99 Room Air Capillary Refill : Less Than 3 Seconds General Appearance: No Apparent Distress, WD/WN HEENT: Pharynx Normal, Moist Mucous Membranes, No Pale Conjunctivae (L), No Pale Conjunctivae (R) Respiratory: Chest Non Tender, Lungs Clear, Normal Breath Sounds, No Accessory Muscle Use, No Respiratory Distress Cardiovascular: Regular Rate, Rhythm, No Edema, No Murmur Gastrointestinal: soft, No guarding, No rebound, tenderness (left lower quadrant, improved compared to yesterday) Extremity: Normal Capillary Refill, No Calf Tenderness, No Pedal Edema Neurologic/Psychiatric: Alert, Oriented x3, No Motor/Sensory Deficits, Normal Mood/Affect, 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8, Eosinophils # (Auto) 0.7H, Basophils # (Auto) 0.0, Sodium Level 141, Potassium Level 3.4L, Chloride Level 107, Carbon Dioxide Level 25, Anion Gap 9, Blood Urea Nitrogen 10, Creatinine 0.61, Estimat Glomerular Filtration Rate > 60, BUN/ Creatinine Ratio 16, Glucose Level 98, Calcium Level 8.6, Total Bilirubin 2.1H, Aspartate Amino Transf (AST/SGOT) 40H, Alanine Aminotransferase (ALT/SGPT) 92H, Alkaline Phosphatase 85, Total Protein 6.5, Albumin 3.6 Microbiology 08/23/17 Influenza Types A,B Antigen (ARBEN) - Final, Complete Assessment/Plan Assessment/Plan Assessment/Plan Acute Diverticulitis -resolved. Will increase diet and then send pt home on oral ABX. Pt should change his diet; increased fiber and decreased red meat to try and avoid future attacks of Diverticulitis. Will send home later today. Pt had no questions and will follow up in a week in my office. Clinical Quality Measures DVT/VTE Risk/Contraindication: Risk Factor Score Per Nursin RFS Level Per Nursing on Admit: 1=Low/No VTE PPX JANNET ABERNATHY DO Aug 25, 2017 13:02
[2017-08-25] MEDS ORDERED: CIPR500S2 PO (13:05)
[2017-08-25] MEDS ORDERED: METR500T PO (13:05)
--- NOTE | 2017-08-25 13:07 | Discharge Inst-Surgical ---
Discharge Inst-Surgical Depart Medication/Instructions New, Converted or Re-Newed RX: Call to Patients Pharmacy Patient Instructions Follow up Appt: Make appointment for 1 week. Instructions: May shower in 24 hours, no tub bath or soaking. Use incentive spirometer at home as directed. No Smoking Symptoms to Report: Appetite Changes, Extremity Discoloration, Numbness/Tingling, Swelling Increased , Bleeding Excessive, Eyesight Changes, Pain Increased, Urine Color Change, Constipation(Persistent), Fever over 101 degree F, Pain/Pressure in chest, Urinating Difficulty, Cough Up/Vomit Blood, Heart Beat Irreg/Pounding, Pain/ Pressure in jaw, Vaginal Bleeding Increase, Cramps in feet or legs, Lightheadedness, Pain/Pressure in shoulder, Diarrhea(Persistent), Memory Changes Suddenly, Questions/Concerns, Weight gain consecutive days, Dizziness/ Fainting, Nausea/Vomiting, Shortness of Breath, Weight gain over 2 pounds If questions or concerns contact your physician Or seek help at emergency department. Activity Driving Instructions: You May Drive Diet Discharge Diet: Low Residue If Any Problems/Questions/Issu: Contact Your Physician, Go to Emergency Room Skin/Wound Care Infection Signs and Symptoms: Increased Redness, Skin Itchy or Has a Rash, Increased Swelling, Temperature Above 101 F Bathing Instructions: JANNET Dooley DO Aug 25, 2017 13:07
[2017-08-25 15:47] VITALS: BP 105/55
[2017-08-25 16:30] VITALS: BP 105/55
== END 2017-08-25 16:30 | disposition home or self-care (01) | DRG 392 ==
LOC: EDUNIT# 22:23 → ER 22:26 → 4TH 08-24 03:35
PROVIDERS: ADMIT Surgery; ATTEND Surgery
DX: K57.32 Diverticulitis of large intestine without perforation or abscess without bleeding (principal)
CPT/HCPCS: 36415; 74177; 80053; 81000; 85025; 87804